=== PATIENT | male | born 2005 | race African-American/Black ===

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

== ENCOUNTER 2025-05-31 14:26 | Emergency (ER) | payer OTHER, MEDICAID ==
[~2025-05-31] VITALS: Ht 185.4 cm; Wt 83.1 kg
[2025-05-31 14:37] VITALS: BP 111/61; PULSE 60; RESP 20; TEMP 98.2; O2SAT 98
--- NOTE | 2025-05-31 14:42 | Physician Documentation ---
History of Present Illness ~ General Stated Complaint: VOMITING Time Seen by MD: 17:02 History of Present Illness Initial Comments Male presents to the ED with a complaint body aches nausea vomiting for one day. States that he also has a cough. Concerned because he went to [facility] yesterday and did a full hike and reached one of the water [place]. Had some water and thinks that maybe he has some sort of water borne illness. otherwise Very healthy. She had initially seen in triage by medical screening provider. He complains of multiple medical complaints. He complains of one day history of vomiting, unable to keep fluid/food down, all over body aches, multiple episodes of diarrhea. He also has a cough and abdominal pain. Pain started this morning. No past medical history. He had a recent exposure to unfiltered water as listed above. No chest pain or pressure. No shortness a breath. No dizziness, lightheadedness or syncope. Was asked, but otherwise denies review of systems. Medication Reconciliation Allergies: Coded Allergies: codeine (Verified Allergy, Unknown, 05/31/25) Scheduled PRN ONDANSETRON ODT 4mg tablet (Ondansetron Odt), 1 TAB PO Q6H PRN PRN for nausea/vomiting Past Medical History Past Medical History: No Pertinent History Past Surgical History: no surgical history Review of Systems ROS Review of systems negative except documented in HPI Physical Exam Physical Exam Physical Exam General: Alert, no apparent distress. HEENT: PERRL, EOMI, no injection, moist mucous membranes. Neck: Full range of motion. Respiratory: Lungs clear, no respiratory distress. Gastrointestinal: Soft, nontender, nondistended. Bowels sounds present. Neurologic: Oriented x4. Psychiatric: Normal mood and affect. Skin: Normal color, warm and dry. No edema, no ecchymosis. Physical exam by Linda Faust NP General: Awake, alert, oriented. No apparent distress Respiratory: Lungs are clear to auscultation bilaterally. No respiratory distress. Chest: Normal shape and size. No accessory muscle use. Cardiovascular: Regular rate and rhythm. S1-S2. No murmur, gallop, rub. Gastrointestinal: Abdomen is soft. Nontender to palpation. Bowel sounds present. Neurologic: Alert and oriented x4. Nonfocal Psychiatric: Normal mood and affect. Skin: Normal color. Warm and dry. Progress Results/Orders Results/Orders Orders - LINDA FAUST SCREEN PRINTING PASTER Covid19 Binax Poc Result Entry (05/31/25 17:18) Completed Orders - LINDA FAUST NP Ondansetron Disint. Tablet (Zofran Odt T (05/31/25 17:20) Influenza Type A&B Rapid Test (05/31/25 17:47) Medications Received in ER Medications (Trade) Dose Ordered Sig/Janee Route PRN Reason Start Time Stop Time Status Last Admin Dose Admin (Zofran ODT tablet) 4 mg ONCE ONCE PO 05/31/25 17:20 05/31/25 17:21 DC 05/31/25 17:48 4 MG Vital Signs 05/31/25 14:37 Temp 98.2 Pulse 60 Resp 20 B/P (MAP) 111/61 Pulse Ox 98 O2 Flow Rate 0 Laboratory Tests Test 05/31/25 17:47 Influenza Type A Antigen Negative Influenza Type B Antigen Negative SARS-CoV-2 Antigen (Rapid) Negative Medical Decision Making Additional information obtaine: N/A Findings Patient presents with multiple medical complaints including nausea, vomiting, diarrhea. He states he drank unfiltered water yesterday. No other sick contacts. He complains of cough, chills, all over body aches. Suspected viral per illness. He was tested for flu and COVID which were both negative. He is hemodynamically stable. His vital signs are normal. He is overall well- appearing. He did not have any episodes of diarrhea while in the emergency department. Considered giardia. Patient has not had any episodes of diarrhea while in the emergency department making this diagnosis less likely. He reported feeling well on discharge. He was given a prescription for Zofran to treat nausea as needed. Warning signs and symptoms were reviewed and he was educated to return if needed. At this time I do not suspect an acute intra- abdominal emergency based on his benign physical exam. Differential Diagnosis As above. Departure Time of Disposition: 19:25 Disposition: HOME / SELF CARE / HOMELESS Impression: Primary Impression: Diarrhea Qualified Codes: R19.7 - Diarrhea, unspecified Additional Impression: Nausea & vomiting Qualified Codes: R11.2 - Nausea with vomiting, unspecified Condition: Stable Discharge Instructions: Viral Gastroenteritis, Adult, [id number] Additional Instructions: Your flu and COVID test were negative. I suspect viral causes of your symptoms. Recommend that you stay well hydrated. I will give you a prescription for Zofran that you can take as needed. Return for new or worsening symptoms including not being able to keep food or water down. Referrals: NO PRIMARY CARE PROVIDER (PCP) Prescriptions ONDANSETRON ODT 4mg tablet (ONDANSETRON ODT) 4 Mg Tab.rapdis 1 TAB PO Q6H PRN PRN for nausea/vomiting for 4 Days, #16 TAB 0 Refills Prov: LINDA FAUST [employer]CREEN [employer]STER 05/31/25 Education Educated: Patient Educated regarding: diagnosis, treatment, need for follow up Signature Scribe Signature: No scribe Attestation: The note accurately reflects work and decisions made by me.Linda Faust - SCREEN PRINTING PASTER 05/31/25 20:12 This note was created with the assistance of voice recognition software whereby errors in grammar, syntax, and/or spelling may have occurred despite active proofreading efforts by the author. Please do not hesitate to contact the provider for clarification or for questions regarding the content of this document. DAYRON SCHWARTZ SCREEN PRINTING PASTER May 31, 2025 14:42 LINDA FAUST NP May 31, 2025 17:24
[2025-05-31] MEDS: ondansetron 4mg rapidly disintigrating tab PO ONE (17:48)
[2025-05-31 18:13] LABS: INFLUENZA TYPE A ANTIGEN RAPID NEGATIVE (Negative); INFLUENZA TYPE B ANTIGEN RAPID NEGATIVE (Negative)
[2025-05-31] MEDS ORDERED: ONDA-243 PO (19:30)
== END 2025-05-31 19:45 | disposition home or self-care (01) ==
LOC: ER 14:27
DX: R19.7 Diarrhea, unspecified (principal); R11.2 Nausea with vomiting, unspecified; Z88.5 Allergy status to narcotic agent; Z20.822 Contact with and (suspected) exposure to COVID-19
CPT/HCPCS: 36415; 87804; 87811; 99283